=== PATIENT | male | born 1955 | race Caucasian/White ===

== ENCOUNTER 2016-03-22 17:29 | Emergency (ER) | payer BC ==
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
[2016-03-22] MEDS ORDERED: DILAUDID 1 MG/ML INJECTION IV ONE (18:23)
[2016-03-22] MEDS ORDERED: Sodium Chloride 0.9% 1000 ML 1,000 ML IV STA ×2 (18:23→20:46)
[2016-03-22] MEDS ORDERED: TORAdol 30 mg Injection IV ONE (18:23)
[2016-03-22] MEDS ORDERED: Phenergan 25 MG INJ IV ONE (18:23)
[2016-03-22] MEDS ORDERED: Flomax 0.4 MG PO STA (18:25)
[2016-03-22] MEDS ORDERED: Flomax 0.4 MG ONE (18:29)
[2016-03-22] MEDS ORDERED: Phenergan 25 MG INJ ONE (18:29)
[2016-03-22] MEDS ORDERED: TORAdol 30 mg Injection ONE (18:29)
[2016-03-22] MEDS ORDERED: DILAUDID 1 MG/ML INJECTION ONE (18:30)
[2016-03-22] MEDS ORDERED: Sodium Chloride 0.9% 1000 ML 1,000 ML ONE (18:30)
[2016-03-22 18:59] LABS: Mean Cell Volume 85.1 fl (78-100); Mean Corpuscular Hemoglobin 26.6 pg (26-32); Mean Platelet Volume 8.7 fl (6-9.5); Platelet Count 146 K/mm3 (150-450); Red Blood Count 4.89 M/mm3 (4.1-5.6); Red Cell Distribution Width 15.6 % (11.5-14.0)
[2016-03-22 19:04] LABS: Collection Type CLEAN CATCH
[2016-03-22 19:05] LABS: Bacteria FEW /HPF (NEGATIVE); COMPLETE URINE MICROSCOPIC? YES; Epithelial Cells FEW /HPF (FEW); WBC 0-2 /HPF (0-5)
[2016-03-22 19:17] LABS: ALBUMIN 3.1 g/dL (3.4-5.0); ANION GAP 12.8 MEQ/L (5-15); BILIRUBIN,TOTAL 0.3 mg/dL (0.2-1.0); Carbon Dioxide 26.1 mEq/L (21-32); Potassium 3.4 mEq/L (3.5-5.1); Total Protein 7.5 gm/dL (6.4-8.2)
[2016-03-22 19:41] LABS: Total Cells Counted 100
[2016-03-22 19:42] LABS: Platelet Estimate NORMAL (NORMAL)
[2016-03-22 20:47] VITALS: BP 142/72; PULSE 80; O2SAT 99
--- NOTE | 2016-03-23 09:25 | XRAY ---
Indication: Right flank pain. History of renal calculi. Multiple contiguous axial images obtained through the abdomen and pelvis without contrast as ordered. Comparison: February 13, 2016 Lung bases demonstrates stable bibasilar discoid atelectasis/scarring and calcified granulomas. No infiltrate or effusion. Heart is not enlarged. There are again orthopedic screws traversing both SI joints as well as pubic symphysis fixation plates/screws producing extreme beam artifact. New 4 mm distal right ureteral calculus approximately 5 cm proximal to the UVJ. The more proximal right ureter is prominent and there is moderate hydronephrosis with perinephric stranding favoring partial obstruction. Stable right renal and posterior urinary bladder micro-calculi. No calculus or evidence for obstructive uropathy in the left system. Noncontrasted stomach and bowel loops appear nonobstructed again with multiple bowel resection. No free fluid/air. Stable cholecystectomy, hepatosplenomegaly, and prominent seminal vesicles. Remaining pancreas and adrenal glands are unremarkable. There remains minimal aortic calcifications and a left common iliac stent graft. Osseous structures intact again with spinal degenerative changes. Impression: 1. New 4 mm distal right ureteral calculus producing partial obstruction as detailed. Stable right renal and urinary bladder calculi. 2. Stable hepatosplenomegaly and postsurgical changes. CTDI is 22.90
== END 2016-03-22 21:28 | disposition home or self-care (01) ==
LOC: ED 17:29
DX: R07.89 Other chest pain (principal); N21.1 Calculus in urethra; N23 Unspecified renal colic; R79.89 Other specified abnormal findings of blood chemistry; R11.0 Nausea; R10.9 Unspecified abdominal pain
CPT/HCPCS: 36415; 74176; 80053; 81000; 85025; 96374; 96375; 99283; J1170; J1642; J1885; J2550

== ENCOUNTER 2019-09-12 09:11 | Emergency (ER) | payer MEDICARE, BC ==
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
[2019-09-12 09:40] LABS: Basophil (Absolute #) 0 (0-0.4); Eosinophil % 1.3 % (0.00-5.0); Eosinophil (Absolute #) 0.05 (0-0.5); Hematocrit 45.6 % (42-50); Hemoglobin 14.9 gm/dl (12.5-18.0); Lymphocyte (Absolute #) 0.83 (1.0-4.6); Lymphocytes % 20.8 % (24.0-44.0); Mean Cell Volume 87.9 fl (78-100); Mean Corpuscular Hemoglobin 28.7 pg (26-32); Mean Corpuscular Hgb Concent. 32.7 g/dl (32-36); Mean Platelet Volume 8.9 fl (7.5-11.0); Monocyte (Absolute #) 0.22 (0.0-1.3); Monocytes % 5.5 % (0.0-12.0); Neutrophil % 72.4 % (36.0-66.0); Platelet Count 97 K/mm3 (150-450); Red Blood Count 5.19 M/mm3 (4.1-5.6); Red Cell Distribution Width 13.9 % (11.5-14.0)
[2019-09-12] MEDS ORDERED: BABY ASPIRIN 81 MG CHEW PO ONE (09:41)
[2019-09-12 09:46] LABS: INR 1.18 (0.8-3.0); PROTIME 13.4 SECONDS (8.83-12.87)
[2019-09-12 09:49] LABS: PTT 38.7 SECONDS (24.1-36.1)
[2019-09-12 09:52] LABS: ALBUMIN 4.3 g/dL (3.5-5.0); ALKALINE PHOSPHATASE 72 U/L (38-126); AMYLASE 62 U/L (30-110); ANION GAP 11.2 MEQ/L (5-15); BLOOD UREA NITROGEN 17 mg/dL (9-20); CHLORIDE 109 mmol/L (98-107); Calcium 9.8 mg/dL (8.4-10.2); Carbon Dioxide 26 mmol/L (22-30); Creatinine 1 1.15 mg/dL (0.66-1.25); Glucose 96 mg/dL (74-106); LIPASE 142 U/L (23-300); Potassium 4.1 mmol/L (3.5-5.1); SGOT/AST 36 U/L (17-59); SGPT/ALT 30 U/L (0-50); SODIUM 143 mmol/L (137-145); Total Protein 8.2 g/dL (6.3-8.2)
--- NOTE | 2019-09-12 09:52 | XRAY ---
Indication: Chest pain. Comparison: November 03, 2013. Portable chest demonstrates new left lower lobe subsegmental atelectasis/scarring. Remaining heart and lungs unremarkable again with incidental azygous lobe and a few tiny calcified granulomas. Bony thorax intact again with partially visualized lower cervical fusion hardware. Impression: Nonacute chest with chronic features.
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
[2019-09-12 11:09] VITALS: BP 144/76
[2019-09-12 11:32] LABS: Slide Review 1 YES
[2019-09-12 12:22] VITALS: PULSE 52
[2019-09-12 12:45] VITALS: O2SAT 98
== END 2019-09-12 11:59 | disposition short-term general hospital (02) ==
LOC: ED 09:11
DX: I20.0 Unstable angina (principal); R07.89 Other chest pain; R11.0 Nausea; Z79.899 Other long term (current) drug therapy; Z79.891 Long term (current) use of opiate analgesic; I10 Essential (primary) hypertension
CPT/HCPCS: 36000; 36415; 71045; 80053; 82150; 83690; 84484; 85025; 85610; 85730; 93005; 99285; A9270-GY

== ENCOUNTER 2021-12-04 11:21 | Emergency (ER) | payer MEDICARE, BC ==
[2021-12-04 11:33] VITALS: BP 149/65; PULSE 65; O2SAT 97
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
--- NOTE | 2021-12-04 13:19 | XRAY ---
Indication: Cough and short of breath. Elevated d-dimer. Multiple contiguous axial images obtained through the chest using 100 cc Isovue 370 contrast and PE protocol. Comparison: December 31, 2020 Good opacification of the pulmonary arteries. However mild respiration artifact limits evaluation of the more distal segmental branches. No pulmonary embolus. Heart not enlarged. Aorta is normal in course and caliber. Again multiple chunky mediastinal and hilar calcified nodes. No pathologic mediastinal/hilar lymphadenopathy. Lungs demonstrates worsening bilateral lower lobe subsegmental atelectasis/scarring, left greater than right. New tiny left effusion. Stable incidental tiny calcified granulomas and anatomic variant for azygos lobe. Bony thorax intact again with flowing osteophytes throughout the spine. Limited upper abdomen again demonstrates fatty liver, 15.8 cm splenomegaly, and cholecystectomy. Impression: 1. Respiration artifact limits evaluation for pulmonary embolus. No obvious pulmonary embolus. 2. Worsening bilateral lower lobe subsegmental atelectasis/scarring with new tiny nonspecific left effusion. 3. Again chronic findings including fatty liver, splenomegaly, chronic bony findings, and old granulomatous disease.
[2021-12-04] MEDS ORDERED: solu-MEDROL 125 MG, Sterile H2O 10 ml 2 ML IV ONE ×2 (13:25)
[2021-12-04] MEDS ORDERED: solu-MEDROL ONE (13:30)
[2021-12-04] MEDS ORDERED: Sterile H2O 10 ml IJ ONE (13:30)
== END 2021-12-04 13:59 | disposition home or self-care (01) ==
LOC: ED 11:21
DX: J40 Bronchitis, not specified as acute or chronic (principal); R04.1 Hemorrhage from throat; R09.81 Nasal congestion; J44.9 Chronic obstructive pulmonary disease, unspecified; I10 Essential (primary) hypertension; Z79.899 Other long term (current) drug therapy
CPT/HCPCS: 36415; 71045; 71260; 80053; 83880; 85025; 85379; 96374; 99283; J2930

== ENCOUNTER 2022-01-09 06:13 | Day surgery (SDC) | payer MEDICARE, BC ==
--- NOTE | 2022-01-07 11:03 | HP ---
DATE OF SURGERY: 01/09/2022 HISTORY OF PRESENT ILLNESS: The patient is a 66-year-old male who presents with anemia. The patient sees Dr. Zamora. The patient has refused to do colonoscopy. He only wants to do an EGD at the current moment. PAST MEDICAL HISTORY: Gastroesophageal reflux disease, heartburn, hypertension. PAST SURGICAL HISTORY: Cholecystectomy. Colon surgery. Neck surgery. Inguinal hernia repair. ALLERGIES: NKDA. MEDICATIONS: Cymbalta, tizanidine, amlodipine, Nexium, Celebrex, losartan, oxycodone, iron, B12, Flomax. FAMILY HISTORY: None reported. SOCIAL HISTORY: Negative. REVIEW OF SYSTEMS: CONSTITUTIONAL: Denies fever or chills. CHEST: Denies shortness of breath. CVS: Denies chest pain. ABDOMEN: Denies abdominal pain. PHYSICAL EXAMINATION: GENERAL: No acute distress. CHEST: Nonlabored. No shortness of breath. CVS: Regular rate and rhythm. ABDOMEN: Soft. IMPRESSION: Anemia. PLAN: The patient has refused colonoscopy. EGD only with Dr. Juliocesar Conti. As dictated by Noemy Duque NP.
[2022-01-09] MEDS ORDERED: Lactated Ringers 1,000 ML IV SCH (06:30)
[2022-01-09] MEDS ORDERED: DIPRIVAN 200 MG/20 ML IV ONE ×2 (07:57→08:55)
[2022-01-09] MEDS ORDERED: Xylocaine-Mpf 2% 5 Ml Vial ONE (07:57)
[2022-01-09 10:04] VITALS: O2SAT 96
[2022-01-09 10:20] VITALS: BP 161/72; PULSE 63
--- NOTE | 2022-01-09 10:35 | OP ---
SURGERY DATE/TIME: 01/09/2022 8111 PREOPERATIVE DIAGNOSIS: Anemia, possible GI. POSTOPERATIVE DIAGNOSIS: Basically normal. No bleeding. He did have findings of grade 3 over 4 gastroesophageal reflux disease but nothing that would remotely bleed. He had a light Schatzki's ring. PROCEDURE: EGD. SURGEON: Juliocesar Conti M.D. CLASSICS TEACHER: Lizzy Quintero M.D. ANESTHESIA: MAC. COMPLICATIONS: None. CONDITION: Stable. DESCRIPTION OF PROCEDURE: Patient taken to endoscopy. MAC sedation. Scope introduced. Pharyngoesophageal junction normal. Esophagus normal down to gastroesophageal junction. A very light Schatzki's ring, grade 3 over 4 gastroesophageal reflux disease, no hiatal hernia. Fundus, body, antrum normal. Pylorus normal. Duodenal bulb normal. Second portion normal. The scope withdrawn looped upon itself. No hiatal hernia. The patient tolerated the procedure satisfactorily. Findings discussed with the . He has not really had a colonoscopy. He has just really been refusing. I have discussed with the that he absolutely needs one and she can call our office and schedule. They are harvesting corn and beans right now and probably will when this is done.
== END 2022-01-09 10:26 | disposition home or self-care (01) ==
LOC: SDC 06:13
PROVIDERS: ATTEND Surgery
DX: K21.9 Gastro-esophageal reflux disease without esophagitis (principal); D64.9 Anemia, unspecified; K22.2 Esophageal obstruction
CPT/HCPCS: J2704

== ENCOUNTER 2022-07-24 06:06 | Day surgery (SDC) | payer MEDICARE, BC ==
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
[2022-07-24] MEDS ORDERED: Lactated Ringers 1,000 ML IV SCH (06:30)
[2022-07-24 08:34] LABS: ALBUMIN 3.9 g/dL (3.5-5.0); BILIRUBIN,TOTAL 0.5 mg/dL (0.2-1.3); Calcium 8.7 mg/dL (8.4-10.2); Creatinine 1 1.28 mg/dL (0.66-1.25); EST GLOMERULAR FILTRATION RATE 59.8 ML/MIN; Potassium 4.1 mmol/L (3.5-5.1); Total Protein 7.5 g/dL (6.3-8.2)
[2022-07-24] MEDS ORDERED: DIPRIVAN 200 MG/20 ML IV ONE ×2 (09:24→09:49)
[2022-07-24] MEDS ORDERED: Versed 2 MG/2 ML Injection ONE (09:24)
[2022-07-24 10:40] VITALS: BP 154/75; PULSE 59; O2SAT 96
--- NOTE | 2022-07-24 11:55 | OP ---
SURGERY DATE/TIME: 07/24/2022 0927 PREOPERATIVE DIAGNOSIS: The patient has diagnosis of varices and he has history of cirrhosis. He has been referred to rule out varices. POSTOPERATIVE DIAGNOSIS: Very mild gastritis/antritis, grade 1 to 2 gastroesophageal reflux disease. No varices. PROCEDURE: EGD. SURGEON: Juliocesar Conti M.D. ANESTHESIA: MAC. COMPLICATIONS: None. CONDITION: Stable. DESCRIPTION OF PROCEDURE: The patient is taken to endoscopy. Left lateral decubitus position. Scope introduced. Pharyngoesophageal junction normal. Esophagus normal down to gastroesophageal junction. There is no visible varices in the esophagus. In the upper stomach, there is no visible gastric varices. In the mid stomach there was little irritation, little gastritis and loan representative biopsies submitted. The antrum is satisfactory. Pylorus satisfactory. Duodenal bulb satisfactory. Scope withdrawn looped upon itself satisfactory. The scope is removed. He does have lesion in the right submandibular area which he is getting a CT scan which we are probably going to biopsy in the office on Thursday incidentally.
== END 2022-07-24 10:55 | disposition home or self-care (01) ==
LOC: SDC 06:06
PROVIDERS: ATTEND Surgery
DX: K29.70 Gastritis, unspecified, without bleeding (principal); K74.60 Unspecified cirrhosis of liver; K21.9 Gastro-esophageal reflux disease without esophagitis; Z80.8 Family history of malignant neoplasm of other organs or systems
CPT/HCPCS: 36415; 80053; J2250; J2704

== ENCOUNTER 2023-07-18 08:33 | Emergency (ER) | payer MEDICARE, BC ==
[2023-07-18 08:53] VITALS: RESP 18; TEMP 98.2
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
[2023-07-18 09:50] VITALS: BP 146/63; PULSE 56; O2SAT 99
[2023-07-18] MEDS ORDERED: Sodium Chloride 0.9% 1000 ML 0 ML ONE (18:13)
[2023-07-18] MEDS ORDERED: PROTONIX 40 MG IV IV ONE (18:13)
--- NOTE | 2023-07-18 20:19 | XRAY ---
Indication: G-tube reinsertion. Comparison: None KUB nonacute and nonobstructed. 25 cc diluted Gastrografin injected through G-tube with contrast collecting in duodenum. No abnormal extravasation. Incidental cholecystomy clips. Osseous structures intact with osteopenia and intact bilateral SI joint screws.
== END 2023-07-18 09:50 | disposition home or self-care (01) ==
LOC: ED 08:33
DX: Z43.1 Encounter for attention to gastrostomy (principal); I10 Essential (primary) hypertension; Z79.891 Long term (current) use of opiate analgesic; Z79.899 Other long term (current) drug therapy
CPT/HCPCS: 43762; 74018; 99281

== ENCOUNTER 2023-09-03 07:52 | Day surgery (SDC) | payer MEDICARE, BC ==
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
[2023-09-03] MEDS: Lactated Ringers 1,000 ML IV SCH (08:07)
[2023-09-03 08:27] LABS: BASOPHIL % 0.4 % (0.2-1.2); Basophil (Absolute #) 0.01 x10^3/uL (0.01-0.08); Eosinophil % 2.9 % (0.8-7.0); Eosinophil (Absolute #) 0.07 x10^3/uL (0.04-0.54); Hematocrit 35.9 % (40.1-51.0); Hemoglobin 11.5 g/dL (13.7-17.5); IMMATURE GRAN # 0.02 x10^3u/L (0.001-0.031); IMMATURE GRAN % 0.8 % (0.001-0.429); Lymphocyte (Absolute #) 0.36 x10^3/uL (1.32-3.57); Lymphocytes % 14.8 % (21.8-53.1); Mean Cell Volume 91.1 fL (79.0-92.2); Mean Corpuscular Hemoglobin 29.2 pg (25.7-32.2); Mean Platelet Volume 10.1 fL (9.4-12.4); Monocyte (Absolute #) 0.18 x10^3/uL (0.30-0.82); Monocytes % 7.4 % (5.3-12.2); Neutrophil % 73.7 % (34.0-67.9); Platelet Count 80 x10^3/uL (163-337); Red Blood Count 3.94 x10^6/uL (4.63-6.08); Red Cell Distribution Width 13.4 % (11.6-14.4); White Blood Count 2.4 x10^3/uL (4.23-9.07)
[2023-09-03 09:04] LABS: Slide Review 1 YES
[2023-09-03] MEDS ORDERED: DIPRIVAN 200 MG/20 ML IV ONE (12:25)
[2023-09-03 13:11] VITALS: RESP 16; O2SAT 98
[2023-09-03 13:19] VITALS: BP 153/74; PULSE 50; TEMP 97.7
--- NOTE | 2023-09-03 18:28 | OP ---
SURGERY DATE/TIME: 09/03/2023 PREOPERATIVE DIAGNOSIS: Dysphagia, relying predominantly on a G-tube. POSTOPERATIVE DIAGNOSIS: Dysphagia, relying predominantly on a G-tube. PROCEDURE: Esophagogastroduodenoscopy with dilatation of the cricopharyngeus, proximal esophagus stricture. SURGEON: Juliocesar Conti MD ANESTHESIA: General. COMPLICATIONS: None. CONDITION: Stable. DESCRIPTION OF PROCEDURE AND FINDINGS: Scope was introduced. Was kind of spastic and just to size, but it did go. The esophagus below this was satisfactory. The GE junction satisfactory. Fundus, body and antrum normal. Pylorus normal. Duodenal bulb normal. Second portion normal. Scope looped on itself. Hiatus satisfactory. Esophagus satisfactory up to the proximal esophagus. A balloon was placed through the scope and pulled back, and it was sequentially dilated at atmospheres 1, 2 and 3 at size 18, 19 and 20. It was a full 20 at this time. It seemed to go through nicely. I think there was quite a bit of improvement. Specific instructions with the .
== END 2023-09-03 13:26 | disposition home or self-care (01) ==
LOC: SDC 07:52
PROVIDERS: ATTEND Surgery
DX: R13.10 Dysphagia, unspecified (principal); Z93.1 Gastrostomy status; Z85.89 Personal history of malignant neoplasm of other organs and systems; Z80.52 Family history of malignant neoplasm of bladder
CPT/HCPCS: 36415; 85025; C1726; J1642; J2704